=== PATIENT | female | born 1995 | race Caucasian/White ===

== ENCOUNTER → 2018-02-24 | Outpatient (CLI) | payer OTHER ==
--- NOTE | 2018-02-24 08:45 | US ---
EXAMINATION TYPE: US abdomen complete DATE OF EXAM: 02/24/2018 COMPARISON: NONE CLINICAL HISTORY: R10.9 abdominal pain. EXAM MEASUREMENTS: Liver Length: 14.2 cm Gallbladder Wall: 0.2 cm CBD: 0.3 cm Spleen: 11.1 cm Right Kidney: 10.5 x 4.5 x 5.7 cm Left Kidney: 9.8 x 5.1 x 4.6 cm Pancreas: Partially obscured by bowel gas. Visualized portions are unremarkable. Liver: Measuring wnl, appears overall homogeneous as there is appropriate visualization of the apolinar l triads and right hemidiaphragm. Gallbladder: wnl Evidence for sonographic Degroot's sign: No CBD: wnl Spleen: wnl Right Kidney: No hydronephrosis or masses seen Left Kidney: No hydronephrosis or masses seen Upper IVC: wnl Abd Aorta: wnl IMPRESSION: Unremarkable abdominal ultrasound. No discrete hepatic lesions. No intrahepatic biliary d uctal dilatation. No sonographic evidence of cholelithiasis or acute cholecystitis.
== END | disposition home or self-care (01) ==
LOC: RADUSWWP 06:51
PROVIDERS: ATTEND Internal Medicine
DX: R10.9 Unspecified abdominal pain (principal)
CPT/HCPCS: 76700

== ENCOUNTER 2019-03-19 15:50 | Observation (INO) | payer OTHER ==
[2019-03-19] MEDS ORDERED: ASPIRIN 81 MG PO STA (16:06)
--- NOTE | 2019-03-19 16:12 | ED ---
General Adult HPI - General Source: patient, family, EMS, RN notes reviewed Mode of arrival: EMS Limitations: no limitations <Neptali Hunter - Last Filed: 03/19/19 16:08> <Romel Rodriguez - Last Filed: 03/19/19 19:19> - General Stated complaint: dizziness Time Seen by Provider: 03/19/19 15:54 - History of Present Illness Initial comments: Patient is a pleasant 23-year-old female presenting to the emergency Department with several complaints. Patient states she felt warm and had palpitations and lightheadedness. Patient had mild pressure in her chest. There was an ache in her left arm. Patient felt somewhat tingly. 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 Patient also had heart catheterization done in September with angioplasty. No stent placement. Patient also has a history of anxiety problems. Patient does admit to feeling a little bit anxious with this episode. Symptoms lasted around 20 minutes aren't are essentially resolved at this poin t. (Neptali Hunter) - Related Data Home Medications Medication Instructions Recorded Confirmed Albuterol Sulfate [Proair Hfa] 2 puff INHALATION RT-Q6H PRN 03/19/19 03/19/19 Blisovi Fe 1-20 1 tab PO HS 03/19/19 03/19/19 Vitamin C/Biotin [Hair, Skin and 1 tab PO DAILY 03/19/19 03/19/19 Nails] buPROPion XL [Wellbutrin Xl] 150 mg PO DAILY 03/19/19 03/19/19 Allergies Allergy/AdvReac Type Severity Reaction Status Date / Time No Known Allergies Allergy Verified 03/19/19 16:27 Review of Systems ROS Other: All systems not noted in ROS Statement are negative. Constitutional: Denies: fever Eyes: Denies: eye pain ENT: Denies: ear pain Respiratory: Reports: dyspnea. Denies: cough Cardiovascular: Reports: chest pain, palpitations Gastrointestinal: Reports: nausea. Denies: abdominal pain Genitourinary: Denies: dysuria Musculoskeletal: Denies: back pain Skin: Denies: rash Neurological: Denies: weakness Psychiatric: Reports: anxiety <Neptali Hunter - Last Filed: 03/19/19 16:08> ROS Other: All systems not noted in ROS Statement are negative. <Romel Rodriguez - Last Filed: 03/19/19 19:19> ROS Statement: Those systems with pertinent positive or pertinent negative responses have been documented in the HPI. Past Medical History Past Medical History: No Reported History History of Any Multi-Drug Resistant Organisms: None Reported Additional Past Surgical History / Comment(s): open heart for transposition of great arteries Past Psychological History: Anxiety, Bipolar Smoking Status: Never smoker Past Alcohol Use History: None Reported Past Drug Use History: None Reported <Neptali Hunter Last Filed: 03/19/19 16:08> General Exam Limitations: no limitations General appearance: alert, in no apparent distress Head exam: Present: atraumatic Eye exam: Present: normal appearance, PERRL ENT exam: Present: normal oropharynx Neck exam: Present: normal inspection Respiratory exam: Present: normal lung sounds bilaterally (Social by herself (23. History of transposition of great vessels. 2 surgeries and) heart catheterization in September with angioplasty no stent in the "vessel). Absent: chest wall tenderness Cardiovascular Exam: Present: regular rate, normal rhythm Expanded Peripheral pulses: 2+: Radial (R), Radial (L), Posterior Tibialis (R), Posterior Tibialis (L), Dorsalis Pedis (R), Dorsalis Pedis (L) GI/Abdominal exam: Present: soft. Absent: tenderness Extremities exam: Present: normal inspection. Absent: pedal edema, calf tenderness Neurological exam: Present: alert Psychiatric exam: Present: normal affect, normal mood Skin exam: Present: normal color <Neptali Hunter Last Filed: 03/19/19 16:08> Course Vital Signs 03/19/19 03/19/19 03/19/19 16:14 17:00 17:30 Temperature 98.4 F Pulse Rate 92 92 81 Respiratory 18 18 18 Rate Blood Pressure 158/91 109/99 127/71 O2 Sat by Pulse 99 96 97 Oximetry 03/19/19 03/19/19 18:30 19:02 Temperature Pulse Rate 89 78 Respiratory 18 16 Rate Blood Pressure 125/58 134/74 O2 Sat by Pulse 97 98 Oximetry EKG Findings - EKG Comments: EKG Findings:: Normal sinus rhythm 98. MA 146. QRS 108. QT 400. QTc 510. Normal axis. Normal QRS. Inferior T wave inversion. T-wave inversion V3 through V6. <Hunter,Neptali - Last Filed: 03/19/19 16:08> Medical Decision Making - Lab Data Result diagrams: 03/19/19 16:21 03/19/19 16:21 <Romel Rodriguez - Last Filed: 03/19/19 19:19> - Medical Decision Making Patient was sent out to me by previous shift physician Dr. Osman Hunter. 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 Patient reports having had recent coronary artery stents. She did however have balloon angioplasty however no stent deployment. Plan at sign out was to follow up with cardiac workup.Patient does have abnormal EKG however no signs of myocardial infarction. She does have T-wave inversions to the inferior and lateral precordial leads. Patient is currently asymptom at.Laboratory evaluation obtained. CBC, coag panel, d-dimer, metabolic panel is unremarkable. Urine hCG is negative. Chest x-ray is unremarkable. Chart decision-making perform the patient. Plan is to admit patient for surgery troponins with cardiology consultation. Patient given aspirin by previous shift physician. Patient understandable amenable to disposition plan. Discussed patient case with Dr. San is willing to accept the patient's care. (Romel Rodriguez) - Lab Data Lab Results 03/19/19 03/19/19 03/19/19 Range/Units 16:21 16:21 16:21 WBC 6.6 (3.8-10.6) k/uL RBC 4.31 (3.80-5.40) m/uL Hgb 12.5 (11.4-16.0) gm/dL Hct 37.0 (34.0-46.0) % MCV 86.1 (80.0-100.0) fL MCH 29.1 (25.0-35.0) pg MCHC 33.9 (31.0-37.0) g/dL RDW 12.6 (11.5-15.5) % Plt Count 217 (150-450) k/uL Neutrophils % 63 % Lymphocytes % 28 % Monocytes % 4 % Eosinophils % 2 % Basophils % 0 % Neutrophils # 4.1 (1.3-7.7) k/uL Lymphocytes # 1.8 (1.0-4.8) k/uL Monocytes # 0.3 (0-1.0) k/uL Eosinophils # 0.2 (0-0.7) k/uL Basophils # 0.0 (0-0.2) k/uL PT (9.0-12.0) sec INR (<1.2) APTT (22.0-30.0) sec D-Dimer (<0.60) mg/L FEU Sodium 138 (137-145) mmol/L Potassium 3.6 (3.5-5.1) mmol/L Chloride 104 (98-107) mmol/L Carbon Dioxide 23 (22-30) mmol/L Anion Gap 11 mmol/L BUN 13 (7-17) mg/dL Creatinine 0.80 (0.52-1.04) mg/dL Est GFR (CKD-EPI)AfAm >90 (>60 ml/min/1.73 sqM) Est GFR (CKD-EPI)NonAf >90 (>60 ml/min/1.73 sqM) Glucose 118 H (74-99) mg/dL Calcium 9.2 (8.4-10.2) mg/dL Magnesium 2.0 (1.6-2.3) mg/dL Total Bilirubin 0.7 (0.2-1.3) mg/dL AST 24 (14-36) U/L ALT 29 (9-52) U/L Alkaline Phosphatase 49 (38-126) U/L Creatine Kinase 110 (30-135) U/L CK-MB (CK-2) 0.5 (0.0-2.4) ng/mL Troponin I <0.012 (0.000-0.034) ng/mL Total Protein 7.6 (6.3-8.2) g/dL Albumin 4.4 (3.5-5.0) g/dL Urine HCG, Qual (Not Detectd) 03/19/19 03/19/19 Range/Units 16:21 16:21 WBC (3.8-10.6) k/uL RBC (3.80-5.40) m/uL Hgb (11.4-16.0) gm/dL Hct (34.0-46.0) % MCV (80.0-100.0) fL MCH (25.0-35.0) pg MCHC (31.0-37.0) g/dL RDW (11.5-15.5) % Plt Count (150-450) k/uL Neutrophils % % Lymphocytes % % Monocytes % % Eosinophils % % Basophils % % Neutrophils # (1.3-7.7) k/uL Lymphocytes # (1.0-4.8) k/uL Monocytes # (0-1.0) k/uL Eosinophils # (0-0.7) k/uL Basophils # (0-0.2) k/uL PT 9.9 (9.0-12.0) sec INR 0.9 (<1.2) APTT 23.0 (22.0-30.0) sec D-Dimer 0.26 (<0.60) mg/L FEU Sodium (137-145) mmol/L Potassium (3.5-5.1) mmol/L Chloride (98-107) mmol/L Carbon Dioxide (22-30) mmol/L Anion Gap mmol/L BUN (7-17) mg/dL Creatinine (0.52-1.04) mg/dL Est GFR (CKD-EPI)AfAm (>60 ml/min/1.73 sqM) Est GFR (CKD-EPI)NonAf (>60 ml/min/1.73 sqM) Glucose (74-99) mg/dL Calcium (8.4-10.2) mg/dL Magnesium (1.6-2.3) mg/dL Total Bilirubin (0.2-1.3) mg/dL AST (14-36) U/L ALT (9-52) U/L Alkaline Phosphatase (38-126) U/L Creatine Kinase (30-135) U/L CK-MB (CK-2) (0.0-2.4) ng/mL Troponin I (0.000-0.034) ng/mL Total Protein (6.3-8.2) g/dL Albumin (3.5-5.0) g/dL Urine HCG, Qual Not Detected (Not Detectd) Disposition <Neptali Hunter - Last Filed: 03/19/19 16:08> Decision Time: 19:19 <Romel Rodriguez - Last Filed: 03/19/19 19:19> Clinical Impression: Chest pain Disposition: ADMITTED IP TO THIS HOSP Condition: Fair Referrals: Vivain Ortega MD [Primary Care Provider] - 1-2 days
[2019-03-19 16:36] LABS: Basophils % (A) 0 %; Eosinophils # (A) 0.2 k/uL (0-0.7); Eosinophils % (A) 2 %; HGB 12.5 gm/dL (11.4-16.0); Lymphocytes # (A) 1.8 k/uL (1.0-4.8); Lymphocytes % (A) 28 %; MCH 29.1 pg (25.0-35.0); MCHC 33.9 g/dL (31.0-37.0); MCV 86.1 fL (80.0-100.0); Mean Platelet Volume 8.1; Monocytes # (A) 0.3 k/uL (0-1.0); Monocytes % (A) 4 %; Neutrophils # (A) 4.1 k/uL (1.3-7.7); Neutrophils % (A) 63 %; Platelet Count 217 k/uL (150-450); RBC 4.31 m/uL (3.80-5.40); RDW 12.6 % (11.5-15.5); WBC 6.6 k/uL (3.8-10.6)
[2019-03-19 16:50] LABS: ALT 29 U/L (9-52); AST 24 U/L (14-36); Albumin 4.4 g/dL (3.5-5.0); Alkaline Phosphatase 49 U/L (38-126); Anion Gap 11 mmol/L; Blood Urea Nitrogen 13 mg/dL (7-17); Calcium 9.2 mg/dL (8.4-10.2); Carbon Dioxide 23 mmol/L (22-30); Chloride 104 mmol/L (98-107); Creatine Kinase 110 U/L (30-135); Glucose 118 mg/dL (74-99); Potassium 3.6 mmol/L (3.5-5.1); Sodium 138 mmol/L (137-145); Total Bilirubin 0.7 mg/dL (0.2-1.3); Total Protein 7.6 g/dL (6.3-8.2)
[2019-03-19 16:53] LABS: D-Dimer 0.26 mg/L FEU (<0.60); INR 0.9 (<1.2); Prothrombin Time 9.9 sec (9.0-12.0)
[2019-03-19 17:12] LABS: Creatine Kinase MB 0.5 ng/mL (0.0-2.4); Troponin I <0.012 ng/mL (0.000-0.034)
--- NOTE | 2019-03-19 18:37 | XR ---
EXAMINATION TYPE: XR chest 2V DATE OF EXAM: 03/19/2019 COMPARISON: Chest x-ray from 2012. HISTORY: Arrhythmia and chest pain. TECHNIQUE: Frontal and lateral views of the chest are obtained. FINDINGS: Overlying EKG leads are seen. There is no focal air space opacity, pleural effusion, or pne umothorax seen. The cardiac silhouette size is within normal limits. The osseous structures are in tact. IMPRESSION: No acute cardiopulmonary process.
[2019-03-19] MEDS ORDERED: NITROGLYCERIN SL TABS 0.4 MG TAB SUBLINGUAL PRN (19:19)
[2019-03-19 20:30] VITALS: BMI 68.8
[2019-03-19] MEDS ORDERED: diphenhydrAMINE 50 MG CAP PO PRN (21:01)
[2019-03-20 06:47] LABS: Cholesterol 217 mg/dL (<200); HDL Cholesterol 89 mg/dL (40-60); LDL Cholesterol,Calculated 106 mg/dL (0-99); Triglycerides 109 mg/dL (<150)
[2019-03-20] MEDS ORDERED: ASPIRIN 325 MG TAB PO SCH (09:00)
--- NOTE | 2019-03-20 10:37 | P.CRDCN ---
History of Present Illness Consult date: 03/20/19 Requesting physician: Zakiya San Reason for Consult (text): Palpitations Chief complaint: Palpitations History of present illness: Is is a pleasant 23-year-old female with history of transposition of the great vessels, she had an initial surgery done 5 days of age, then at 4 months of age. She follows with Dr. Causey at [facility]. Most recently patient underwent heart catheterization in September at which time she underwent angioplasty as well. Patient also has known pulmonary valve issues. She presents to the hospital on this occasion with symptoms of feeling warm, and feeling like her heart was racing fast. She also states that she felt lightheaded as though she may pass out, she did not pass out however. She also felt a pressure sensation in her chest and her left arm. Patient does have known history of anxiety, and felt quite anxious when this was going on. Patient underwent a stress test and MRI in October of this year which were both reported to be normal. Chest x-ray performed on arrival here did not reveal any acute cardiopulmonary process. Her EKG showed a sinus rhythm with T wave inversion noted in the inferior and lateral leads. I did review an old EKG which the patient had on her phone, it showed similar changes at that time. He art rate on arrival here 98, present the patient is in a normal sinus rhythm with a heart rate of 60. Blood pressure on arrival here 158/90 with a heart rate in the 90s, 99% on room air. White blood cell count 6.6, hemoglobin 12.5, platelet count 217. D-dimer 0.26, sodium 138, potassium 3.6, BUN 13 and creatinine 0.8. Troponins negative 3. Cholesterol 217, LDL 106, HDL 89 and triglycerides 109. At the time of my examination this morning, patient feels well, no palpitations, no dizziness or lightheadedness Past Medical History Past Medical History: No Reported History Additional Past Medical History / Comment(s): transposition of great vessels, pulmonary stenosis History of Any Multi-Drug Resistant Organisms: None Reported Past Surgical History: Ear Surgery, Heart Catheterization Additional Past Surgical History / Comment(s): open heart for transposition of great arteries, balloon angioplasty Past Anesthesia/Blood Transfusion Reactions: No Reported Reaction Smoking Status: Never smoker - Past Family History Mother Family Medical History: Supraventricular Tachycardia (SVT) Additional Family Medical History / Comment(s): anx Father Family Medical History: Asthma, GERD/Reflux Medications and Allergies Home Medications Medication Instructions Recorded Confirmed Type Albuterol Sulfate [Proair Hfa] 2 puff INHALATION RT-Q6H PRN 03/19/19 03/19/19 History Blisovi Fe 1-20 1 tab PO HS 03/19/19 03/19/19 History Vitamin C/Biotin [Hair, Skin and 1 tab PO DAILY 03/19/19 03/19/19 History Nails] buPROPion XL [Wellbutrin Xl] 150 mg PO DAILY 03/19/19 03/19/19 History Allergies Allergy/AdvReac Type Severity Reaction Status Date / Time No Known Allergies Allergy Verified 03/19/19 20:18 Physical Exam Vitals: Vital Signs Temp Pulse Pulse Resp BP BP Pulse Ox 03/20/19 08:00 98.2 F 66 14 119/73 100 03/20/19 03:35 16 03/20/19 03:34 64 16 120/67 100 03/20/19 00:00 16 03/19/19 23:48 98.1 F 78 16 118/74 99 03/19/19 21:51 16 03/19/19 20:25 98.3 F 74 16 127/74 98 03/19/19 19:02 78 16 134/74 98 03/19/19 18:30 89 18 125/58 97 03/19/19 17:30 81 18 127/71 97 03/19/19 17:00 92 18 109/99 96 03/19/19 16:14 98.4 F 92 18 158/91 99 Intake and Output 03/19/19 03/20/19 03/20/19 22:59 06:59 14:59 Other: # Voids 1 Weight 187.7 kg PHYSICAL EXAMINATION: GENERAL: 23-year-old female in no acute distress at the time of my examination HEENT: Head is atraumatic, normocephalic. Pupils equal, round. Sclera anicteric. Conjunctiva are clear. Mucous membranes of the mouth are moist. Neck is supple. There is no elevated jugular venous pressure. No carotid bruit is heard. HEART EXAMINATION: Heart S1 and S2 loud systolic ejection murmur is heard CHEST EXAMINATION: Lungs are clear to auscultation and precussion. No chest wall tenderness is noted on palpation or with deep breathing. ABDOMEN: Soft, nontender. Bowel sounds are heard. No organomegaly noted. EXTREMITIES: 2+ peripheral pulses with no evidence of peripheral edema and no calf tenderness noted. NEUROLOGIC patient is awake, alert and oriented 3 . . Results 03/19/19 16:21 03/19/19 16:21 Cardiac Enzymes 03/19/19 03/19/19 03/19/19 Range/Units 16:21 16:21 22:46 AST 24 (14-36) U/L CK-MB (CK-2) 0.5 (0.0-2.4) ng/mL Troponin I <0.012 <0.012 (0.000-0.034) ng/mL 03/20/19 Range/Units 05:42 AST (14-36) U/L CK-MB (CK-2) (0.0-2.4) ng/mL Troponin I <0.012 (0.000-0.034) ng/mL Coagulation 03/19/19 Range/Units 16:21 PT 9.9 (9.0-12.0) sec APTT 23.0 (22.0-30.0) sec Lipids 03/20/19 Range/Units 05:42 Triglycerides 109 (<150) mg/dL Cholesterol 217 H (<200) mg/dL HDL Cholesterol 89 H (40-60) mg/dL CBC 03/19/19 Range/Units 16:21 WBC 6.6 (3.8-10.6) k/uL RBC 4.31 (3.80-5.40) m/uL Hgb 12.5 (11.4-16.0) gm/dL Hct 37.0 (34.0-46.0) % Plt Count 217 (150-450) k/uL Comprehensive Metabolic Panel 03/19/19 Range/Units 16:21 Sodium 138 (137-145) mmol/L Potassium 3.6 (3.5-5.1) mmol/L Chloride 104 (98-107) mmol/L Carbon Dioxide 23 (22-30) mmol/L BUN 13 (7-17) mg/dL Creatinine 0.80 (0.52-1.04) mg/dL Glucose 118 H (74-99) mg/dL Calcium 9.2 (8.4-10.2) mg/dL AST 24 (14-36) U/L ALT 29 (9-52) U/L Alkaline Phosphatase 49 (38-126) U/L Total Protein 7.6 (6.3-8.2) g/dL Albumin 4.4 (3.5-5.0) g/dL Current Medications Generic Name Dose Route Start Last Admin Trade Name Freq PRN Reason Stop Dose Admin Aspirin 325 mg 03/20/19 09:00 Aspirin PO DAILY CHASITY Diphenhydramine HCl 50 mg 03/19/19 21:01 03/19/19 21:26 Benadryl PO 50 mg HS PRN Administration Insomnia Nitroglycerin 0.4 mg 03/19/19 19:19 Nitrostat SUBLINGUAL Q5M PRN Chest Pain Intake and Output 03/19/19 03/20/19 03/20/19 22:59 06:59 14:59 Other: # Voids 1 Weight 187.7 kg 03/19/19 16:21 03/19/19 16:21 EKG Interpretations (text) Initial EKG shows a sinus rhythm, with T wave inversion noted in the inferior lateral leads. Assessment and Plan Plan: Assessment and plan #1 symptoms of palpitations with associated lightheadedness, EKG on arrival showed a sinus rhythm, sinus tachycardia with T wave inversion in the inferior lateral leads similar to prior EKGs. This morning patient is in a normal sinus rhythm. #2 history of transposition of the great vessels with prior surgeryX2, most recently patient underwent a cardiac catheterization with angioplasty at [facility]. #3 anxiety Plan We will obtain a TSH level. Patient did have a recent stress test and MRI performed in October of this year which were reported to be normal. Echocardiogram with Doppler study has also recently been up for performed as an outpatient. We would recommend patient to follow-up with Dr. Causey at [facility]. Further recommendations to follow. DNP note has been reviewed, I agree with a documented findings and plan of care. Patient was seen and examined.
[2019-03-20] MEDS ORDERED: METOPROLOL SUCCINATE (ER) 25 MG TAB.ER.24H PO SCH (10:45)
[2019-03-20 12:08] VITALS: BP 120/74; PULSE 75; RESP 16; TEMP 97.8
--- NOTE | 2019-03-20 12:15 | P.HPIM ---
History of Present Illness H&P Date: 03/20/19 HISTORY AND PHYSICAL AND DISCHARGE SUMMARY: This is a 23-year-old female patient of Dr. Ortega and Dr. Causey ([facility]) with history of transposition of the great vessels, she had an initial surgery done 5 days of age, then at 4 months of age. Most recently patient underwent heart catheterization in September at which time she underwent angioplasty as well. Patient also has known pulmonary valve issues. Patient complains of having symptoms with dizziness lightheadedness shortness of breath, palpitations slight heaviness in her chest and left arm achiness. She states that yesterday she ate breakfast at 9 AM and did not get eat again until 3 PM only having ice coffee in between. She does give history of anxiety attacks and this seemed to be more severe than her previous attacks. Patient's mother is concerned that the symptoms then created anxiety. At the time of this evaluation, patient states that her symptoms have resolved. Patient came into [facility] emergency center for evaluation. Chest x-ray did not reveal any acute cardiopulmonary process. EKG showed a sinus rhythm with T wave inversion noted in the inferior and lateral leads. EKG was unchanged according to cardiology from previous.. Heart rate 98, Blood pressure 158/90, 99% on room air. White blood cell count 6.6, hemoglobin 12.5, platelet count 217. D-dimer 0.26, sodium 138, potassium 3.6, BUN 13 and creatinine 0.8. Troponins negative 3. Cholesterol 217, LDL 106, HDL 89 and triglycerides 109. The patient was placed on the observation unit. Troponins were negative on 3 draws. Triglycerides 109, cholesterol 217, LDL 106, HDL 89, TSH 4.040. Cardiology has evaluated the patient and started her on metoprolol succinate. Patient has been instructed to follow-up with Dr. Causey. Review of Systems All systems: negative Constitutional: Denies anorexia, Denies chills, Denies fatigue, Denies fever, Denies lethargy, Denies malaise, Denies poor appetite, Denies weakness, Denies weight loss Eyes: denies blurred vision, denies pain Ears, nose, mouth and throat: Reports vertigo, Denies dysphagia, Denies headache, Denies nasal congestion, Denies nasal discharge, Denies sore throat Cardiovascular: Reports chest pain, Reports lightheadedness, Reports palpitations, Reports rapid heart beat, Reports shortness of breath, Denies decreased exercise tolerance, Denies dyspnea on exertion, Denies edema, Denies leg edema Respiratory: Denies cough, Denies cough with sputum, Denies excessive sputum, Denies hemoptysis, Denies home oxygen, Denies wheezing Gastrointestinal: Denies abdominal pain, Denies diarrhea, Denies loss of appetite, Denies melena, Denies nausea, Denies vomiting Genitourinary: Denies dysuria, Denies hematuria, Denies urgency, Denies urinary frequency Musculoskeletal: Denies frequent falls, Denies gait dysfunction, Denies muscle weakness, Denies myalgias Integumentary: Denies pruritus, Denies rash, Denies wounds Neurological: Denies aphasia, Denies change in mentation, Denies change in speech, Denies numbness, Denies weakness Psychiatric: Denies anxiety, Denies depression Endocrine: Denies fatigue, Denies weight change Past Medical History Past Medical History: No Reported History Additional Past Medical History / Comment(s): transposition of great vessels, pulmonary stenosis History of Any Multi-Drug Resistant Organisms: None Reported Past Surgical History: Ear Surgery, Heart Catheterization Additional Past Surgical History / Comment(s): open heart for transposition of great arteries, balloon angioplasty Past Anesthesia/Blood Transfusion Reactions: No Reported Reaction Past Psychological History: Anxiety, Panic Disorder Smoking Status: Never smoker - Past Family History Mother Family Medical History: Supraventricular Tachycardia (SVT) Additional Family Medical History / Comment(s): Mother is alive and has history of SVT status post ablation and anxiety. Father Family Medical History: Asthma, GERD/Reflux Medications and Allergies Home Medications Medication Instructions Recorded Confirmed Type Albuterol Sulfate [Proair Hfa] 2 puff INHALATION RT-Q6H PRN 03/19/19 03/19/19 History Blisovi Fe 1-20 1 tab PO HS 03/19/19 03/19/19 History Vitamin C/Biotin [Hair, Skin and 1 tab PO DAILY 03/19/19 03/19/19 History Nails] buPROPion XL [Wellbutrin XL] 150 mg PO DAILY 03/19/19 03/19/19 History Metoprolol Succinate (ER) [Toprol 25 mg PO DAILY #30 tab.er.24h 03/20/19 Rx XL] Allergies Allergy/AdvReac Type Severity Reaction Status Date / Time No Known Allergies Allergy Verified 03/19/19 20:18 Physical Exam Vitals: Vital Signs Temp Pulse Pulse Resp BP BP Pulse Ox 03/20/19 08:00 98.2 F 66 14 119/73 100 03/20/19 03:35 16 03/20/19 03:34 64 16 120/67 100 03/20/19 00:00 16 03/19/19 23:48 98.1 F 78 16 118/74 99 03/19/19 21:51 16 03/19/19 20:25 98.3 F 74 16 127/74 98 03/19/19 19:02 78 16 134/74 98 03/19/19 18:30 89 18 125/58 97 03/19/19 17:30 81 18 127/71 97 03/19/19 17:00 92 18 109/99 96 03/19/19 16:14 98.4 F 92 18 158/91 99 Intake and Output 03/19/19 03/20/19 03/20/19 22:59 06:59 14:59 Other: # Voids 1 Weight 187.7 kg Gen: This is a 23-year-old female. HEENT: Head is atraumatic, normocephalic. Pupils equal, round. Sclerae is anicteric. NECK: Supple. No JVD. No lymphadenopathy. No thyromegaly. LUNGS: Clear to auscultation. No wheezes or rhonchi. No intercostal retractions. HEART: Regular rate and rhythm. Loud systolic ejection murmur. ABDOMEN: Soft. Bowel sounds are present. No masses. No tenderness. EXTREMITIES: No pedal edema. No calf tenderness. Dorsalis pedis +2 bilater ally. NEUROLOGICAL: Patient is awake, alert and oriented x3. Cranial nerves 2 through 12 are grossly intact. Results CBC & Chem 7: 03/19/19 16:21 03/19/19 16:21 Labs: Abnormal Lab Results - Last 24 Hours (Table) 03/19/19 03/20/19 Range/Units 16:21 05:42 Glucose 118 H (74-99) mg/dL Cholesterol 217 H (<200) mg/dL LDL Cholesterol, Calc 106 H (0-99) mg/dL HDL Cholesterol 89 H (40-60) mg/dL Assessment and Plan Plan: 1. Palpitations, lightheadedness secondary to sinus tachycardia possibly related to anxiety. 2. History of transposition of the great vessels with prior surgery and recent heart catheterization and angioplasty at [facility]. 3. Generalized anxiety disorder and panic attacks. Patient placed on the observation unit. Discharge plan: home Discharge Medication List Albuterol Sulfate [Proair Hfa] 2 puff INHALATION RT-Q6H PRN 03/19/19 [History] Blisovi Fe 1-20 1 tab PO HS 03/19/19 [History] Vitamin C/Biotin [Hair, Skin and Nails] 1 tab PO DAILY 03/19/19 [History] buPROPion XL [Wellbutrin XL] 150 mg PO DAILY 03/19/19 [History] Metoprolol Succinate (ER) [Toprol XL] 25 mg PO DAILY #30 tab.er.24h 03/20/19 [Rx] Impression and plan of care have been directed as dictated by the signing physician. Emilie Schultz nurse practitioner acting as scribe for signing physician.
== END 2019-03-20 13:42 | disposition home or self-care (01) ==
LOC: EC 15:50 → 1SOBS 19:19
PROVIDERS: ADMIT Internal Medicine; ATTEND Internal Medicine
DX: R00.0 Tachycardia, unspecified (principal); R42 Dizziness and giddiness; R00.2 Palpitations; R07.89 Other chest pain; R06.02 Shortness of breath; R94.31 Abnormal electrocardiogram [ECG] [EKG]; F41.1 Generalized anxiety disorder; F41.0 Panic disorder [episodic paroxysmal anxiety]; Q20.3 Discordant ventriculoarterial connection; Z98.61 Coronary angioplasty status; F31.9 Bipolar disorder, unspecified; Z79.3 Long term (current) use of hormonal contraceptives; Z79.899 Other long term (current) drug therapy; Z82.5 Family history of asthma and other chronic lower respiratory diseases; Z82.49 Family history of ischemic heart disease and other diseases of the circulatory system; Z83.79 Family history of other diseases of the digestive system; Z81.8 Family history of other mental and behavioral disorders
CPT/HCPCS: 99285; 36415; 93005; 85379; 80061; 80053; 82550; 82553; 83735; 84443; 84484 ×2; 85025; 85610; 85730; 81025; 71046; G0378 ×2

== ENCOUNTER → 2019-06-16 | Outpatient (CLI) | payer OTHER ==
--- NOTE | 2019-06-17 07:59 | US ---
EXAMINATION TYPE: US thyroid st tissue head/neck DATE OF EXAM: 06/16/2019 COMPARISON: NONE CLINICAL HISTORY: 23-year-old female I88.9 cervical lymphadenitis. Lymphadenitis. TECHNIQUE: Multiple sonographic images of the thyroid gland are obtained. FINDINGS: GLAND SIZE: Right Lobe: 5.3 x 1.5 x 1.6 cm Overall Parenchyma: homogenous Left Lobe: 4.9 x 1.4 x 1.3 cm Overall Parenchyma: homogeneous Isthmus Thickness: 0.2 cm NODULES RIGHT: # of nodules measured on right: 2 1. .7 X .6 x .6 cm hypoechoic solid nodule at the lower pole with well-defined margins; . This nod ule is wider than tall and shows intranodular vascularity. 2. .6 X .2 x .4 cm colloid cyst at the upper pole. This nodule is wider than tall and shows no intra nodular vascularity. LEFT: # of nodules measured on left: 0 ISTHMUS: # of nodules measured in the isthmus: 0 Bilateral neck scanned, no evidence of lymphadenopathy. IMPRESSION: 1. Borderline thyromegaly. 2. 7 mm solid nodule at the right lower pole. Follow-up can be considered. 3. An additional 6 mm benign colloid cyst at the right upper pole.
== END | disposition home or self-care (01) ==
LOC: RADUSWWP 17:00
PROVIDERS: ATTEND Family Medicine
DX: E04.9 Nontoxic goiter, unspecified (principal)
CPT/HCPCS: 76536

== ENCOUNTER 2021-10-10 03:44 | Emergency (ER) | payer BC ==
[2021-10-10 03:51] VITALS: RESP 20; TEMP 98.1
--- NOTE | 2021-10-10 04:15 | ED ---
Recheck HPI - General Chief Complaint: ENT Stated Complaint: Post-op throat pain Time Seen by Provider: 10/10/21 03:51 Source: patient, RN notes reviewed, old records reviewed Mode of arrival: ambulatory Limitations: no limitations - History of Present Illness Initial Comments: This is a 26-year-old female postoperative tonsillectomy. Patient coming in for significant bleeding, vomiting and bleeding. Patient states bleeding and postop course was normal so just tired to arrival. Patient has significant bleeding coughing up clots very nauseous feels like she may pass out very anxious. Not lightheaded or dizzy Complaint: wound re-check (Recheck postop healing) -: hour(s) Returns Today for: persistent/worsening pain related to initial visit, other (Persistent bleeding from surgical site) Symptoms Since Prior Visit: no new symptoms Context: planned re-check Associated Symptoms: none Treatments Prior to Arrival: home treatments - Related Data Home Medications Medication Instructions Recorded Confirmed Atorvastatin Calcium [Lipitor] 20 mg PO DAILY 10/10/21 10/10/21 Sertraline [Zoloft] 50 mg PO DAILY 10/10/21 10/10/21 Previous Rx's Medication Instructions Recorded Metoprolol Succinate (ER) [Toprol 25 mg PO DAILY #30 tab.er.24h 03/20/19 XL] Allergies Allergy/AdvReac Type Severity Reaction Status Date / Time No Known Allergies Allergy Verified 10/10/21 10:30 Review of Systems ROS Statement: Those systems with pertinent positive or pertinent negative responses have been documented in the HPI. ROS Other: All systems not noted in ROS Statement are negative. 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 Father Family Medical History: Asthma, GERD/Reflux General Exam Limitations: no limitations General appearance: alert, in no apparent distress, anxious Head exam: Present: atraumatic, normocephalic, normal inspection Eye exam: Present: normal appearance, PERRL, EOMI. Absent: scleral icterus, conjunctival injection, periorbital swelling ENT exam: Present: mucous membranes moist. Absent: normal oropharynx (Patient does have well-healing posterior pharynx right upper aspect does have bleeding) Neck exam: Present: normal inspection. Absent: tenderness, meningismus, lymphadenopathy Respiratory exam: Present: normal lung sounds bilaterally. Absent: respiratory distress, wheezes, rales, rhonchi, stridor Cardiovascular Exam: Present: regular rate, normal rhythm, normal heart sounds. Absent: systolic murmur, diastolic murmur, rubs, gallop, clicks GI/Abdominal exam: Present: soft, normal bowel sounds. Absent: distended, tenderness, guarding, rebound, rigid Extremities exam: Present: normal inspection, full ROM, normal capillary refill. Absent: tenderness, pedal edema, joint swelling, calf tenderness Back exam: Present: normal inspection Neurological exam: Present: alert, oriented X3, CN II-XII intact Psychiatric exam: Present: normal affect, normal mood Skin exam: Present: warm, dry, intact, normal color. Absent: rash Course Vital Signs 10/10/21 10/10/21 03:48 06:43 Temperature 98.1 F Pulse Rate 103 H 87 Respiratory 20 20 Rate Blood Pressure 160/90 130/84 O2 Sat by Pulse 99 96 Oximetry - Reevaluation(s) Reevaluation #1: 10/10/21 Medical record is reviewed Patient symptoms are significantly improved here in the emergency department Patient informed results and questions answered Patient encouraged to continue to swish and spit cold ice water. At his baseline. Hemostasis here in the ER Medical Decision Making - Medical Decision Making 26 female postop bleeding, patient denies water swishes here in the ER and can be discharged home Disposition Clinical Impression: Postoperative bleeding from mouth Disposition: HOME SELF-CARE Condition: Good Instructions (If sedation given, give patient instructions): Postoperative Bl eeding (ED) Is patient prescribed a controlled substance at d/c from ED?: No Referrals: Vivian Ortega MD [Primary Care Provider] - 1-2 days
[2021-10-10 06:45] VITALS: BP 130/84; PULSE 87
== END 2021-10-10 06:45 | disposition home or self-care (01) ==
LOC: EC 03:44
DX: K91.840 Postprocedural hemorrhage of a digestive system organ or structure following a digestive system procedure (principal); F41.0 Panic disorder [episodic paroxysmal anxiety]; Z72.89 Other problems related to lifestyle
CPT/HCPCS: 99283

== ENCOUNTER 2021-10-10 09:44 | Emergency (ER) | payer BC ==
[2021-10-10 10:05] VITALS: BP 134/90; PULSE 124; RESP 18; TEMP 98.5
--- NOTE | 2021-10-10 10:26 | ED ---
General Adult HPI - General Chief complaint: Recheck/Abnormal Lab/Rx Stated complaint: revisit-ENT Time Seen by Provider: 10/10/21 10:03 Source: patient, family, RN notes reviewed Mode of arrival: ambulatory Limitations: no limitations - History of Present Illness Initial comments: 25-year-old female presents emergency Department with chief complaint of bleeding. Patient states she had surgery on Thursday by Dr. Luu in which she had tonsillectomy. She started bleeding on 3 3 AM this morning. Was prior seen in the ER please subsided for one hour has cause rebleeding. Patient states she has bright red blood, clots. Mild increasing pain denies any trauma denies eating anything that started this. Patient offers no other complaints. - Related Data Home Medications Medication Instructions Recorded Confirmed Albuterol Sulfate [Proair Hfa] 2 puff INHALATION RT-Q6H PRN 03/19/19 03/19/19 [place]ovi Fe 1-20 1 tab PO HS 03/19/19 03/19/19 Vitamin C/Biotin [Hair, Skin and 1 tab PO DAILY 03/19/19 03/19/19 Nails Chew] buPROPion XL [Wellbutrin XL] 150 mg PO DAILY 03/19/19 03/19/19 Previous Rx's Medication Instructions Recorded Metoprolol Succinate (ER) [Toprol 25 mg PO DAILY #30 tab.er.24h 03/20/19 XL] Allergies Allergy/AdvReac Type Severity Reaction Status Date / Time No Known Allergies Allergy Verified 10/10/21 09:54 Review of Systems ROS Statement: Those systems with pertinent positive or pertinent negative responses have been documented in the HPI. ROS Other: All systems not noted in ROS Statement are negative. 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 Father Family Medical History: Asthma, GERD/Reflux General Exam Limitations: no limitations General appearance: alert, in no apparent distress Head exam: Present: atraumatic, normocephalic, normal inspection Eye exam: Present: normal appearance, PERRL, EOMI. Absent: scleral icterus, conjunctival injection, periorbital swelling ENT exam: Present: mucous membranes moist, TM's normal bilaterally. Absent: normal exam, normal oropharynx (Status post tonsillectomy, bright red blood noted, no significant bleeding at this time.) Neck exam: Present: normal inspection, full ROM. Absent: tenderness, meningismus, lymphadenopathy Respiratory exam: Present: normal lung sounds bilaterally. Absent: respiratory distress, wheezes, rales, rhonchi, stridor Cardiovascular Exam: Present: regular rate, normal rhythm, normal heart sounds. Absent: systolic murmur, diastolic murmur, rubs, gallop, clicks Course Vital Signs 10/10/21 09:54 Temperature 98.5 F Pulse Rate 124 H Respiratory 18 Rate Blood Pressure 134/90 O2 Sat by Pulse 96 Oximetry Medical Decision Making - Medical Decision Making I did contact patient surgeon's office and which staff stated that surgeon was out of the office. They recommend patient to go to try [facility]. I did contact her Jeremie who accepts transfer. Patient does not have active bleeding though felt this to be a recurrent issue will be evaluated by ENT. ENT coverage not available here. Disposition Clinical Impression: Status post tonsillectomy, Postoperative bleeding from mouth Disposition: OTHER INSTITUTION NOT DEFINED Condition: Stable Referrals: Vivian Ortega MD [Primary Care Provider] - 1-2 days - Out of Hospital Transfer - Req. Specs Out of Hospital Transfer - Requested Specifics: Other Emergency Center ([facility])
== END 2021-10-10 10:33 | disposition other institution (70) ==
LOC: EC 09:44
DX: K91.840 Postprocedural hemorrhage of a digestive system organ or structure following a digestive system procedure (principal); Z90.09 Acquired absence of other part of head and neck; F41.0 Panic disorder [episodic paroxysmal anxiety]; Z72.89 Other problems related to lifestyle
CPT/HCPCS: 99283